=== PATIENT | female | born 1990 | race Hispanic/Latino ===

== ENCOUNTER → 2016-10-08 | Outpatient (CLI) | payer OTHER ==
[~2016-10-08] MED LIST: METHACHOLINE KIT (J7674) INH ONE
--- NOTE | 2016-10-08 12:20 | PFTRPT ---
Site: [facility], [address], [place], [address] ID: [id number] Name: ALENA COSTELLO Doctor: Diana Nicole Tech: Tayler WALTON RRT Age: 26 Sex: Female Race: Height: 69.00 Inches Weight: 205.00 Lbs BSA: 2.09 Diagnosis: R05 20% after saline dose. Diana Hoffmann notified who then ordered methacholine not be administered. Pt was given four puffs of albuterol for postbronchodilator. Pre-Bronch Post-Bronch Pred Actual %Pred Actual %Chng SPIROMETRY FVC (L) 4.42 3.93 88 3.76 -4 FEV1 (L) 3.80 2.76 72 2.94 6 FEV1/FVC (%) 86 70 81 78 11 FEF 25% (L/sec) 6.32 4.96 78 6.36 28 FEF 50% (L/sec) 4.61 2.26 49 3.03 33 FEF 75% (L/sec) 1.99 0.82 41 0.80 -2 FEF 25-75% (L/sec) 4.19 1.90 45 2.28 19 FEF Max (L/sec) 7.97 6.43 80 6.52 1 FIVC (L) 3.69 3.56 -3 FIF 50% (L/sec) 4.49 3.82 85 5.66 48 FIF Max (L/sec) 3.89 5.82 49
== END ==
LOC: M CARPUL 10:22
PROVIDERS: ATTEND Nurse Practitioner Adult Health
DX: R05 Cough (principal)

== ENCOUNTER → 2016-10-09 | Outpatient (REF) | payer OTHER ==
[2016-10-12 08:06] LABS: E001-IgE Cat Epith/Dander < 0.10 kU/L (Class 0); E005-IgE Dog Dander 1.76 kU/L (Class III); G002-IgE Bermuda Grass < 0.10 kU/L (Class 0); G008-IgE Kentucky Bluegrass < 0.10 kU/L (Class 0); M001-IgE Penicillium chrysogen < 0.10 kU/L (Class 0); M002 IgE Cladosporium herbaru < 0.10 kU/L (Class 0); M003 IgE Aspergillus fumigatu < 0.10 kU/L (Class 0); M006-IgE Alternaria alternata < 0.10 kU/L (Class 0); T001-IgE Maple/Box Elder < 0.10 kU/L (Class 0); T003-IgE Common Silver Birch < 0.10 kU/L (Class 0); T007-IgE Oak, White < 0.10 kU/L (Class 0); T008-IgE Elm, American < 0.10 kU/L (Class 0); T015-IgE Ash, White < 0.10 kU/L (Class 0); T041-IgE Hickory, White < 0.10 kU/L (Class 0); W001-IgE Ragweed, Short < 0.10 kU/L (Class 0); W009-IgE Plantain, English < 0.10 kU/L (Class 0); W014-IgE Pigweed, Rough < 0.10 kU/L (Class 0); W018-IgE Sheep Sorrel < 0.10 kU/L (Class 0)
== END ==
LOC: M LAB REF 13:22
PROVIDERS: ATTEND Nurse Practitioner Adult Health
DX: R05 Cough (principal)

== ENCOUNTER → 2016-10-09 | Outpatient (CLI) | payer OTHER ==
--- NOTE | 2016-10-09 12:10 | REP ---
Chest two views HISTORY: Cough Comparison: None The lungs are clear. The heart is normal in size. The pulmonary vasculature is normal in appearance. The bony structure is intact. IMPRESSION: No acute disease. Signed by Jef Grullon MD 10/09/2016 12:02 P
== END ==
LOC: M SMT 09:12
PROVIDERS: ATTEND Nurse Practitioner Adult Health
DX: R05 Cough (principal)